=== PATIENT | male | born 1990 | race Caucasian/White ===

== ENCOUNTER 2017-09-06 19:23 | Emergency (ER) | payer OTHER ==
[2017-09-06 19:43] VITALS: BP 131/70; PULSE 99; RESP 16; TEMP 98.1; O2SAT 100
--- NOTE | 2017-09-06 20:00 | ED PDOC ---
HPI: CCC, URI, Sore Throat Time Seen by Provider: 09/06/17 19:56 Chief Complaint (Nursing): ENT Problem Chief Complaint (Provider): Throat pain History Per: Patient History/Exam Limitations: no limitations Onset/Duration Of Symptoms: Days (2) Additional Complaint(s): Patient is a 27 y/o male with a past medical history of asthma presenting to the emergency department for throat pain, body aches, and possibly a fever ongoing for two days. Notes taking cold medication without any significant relief. Denies known sick contacts, and denies any other complaints. PCP: none provided. Past Medical History Reviewed: Historical Data, Nursing Documentation, Vital Signs Vital Signs: Last Vital Signs Temp 98.1 F 09/06/17 19:41 Pulse 99 H 09/06/17 19:41 Resp 16 09/06/17 19:41 BP 131/70 09/06/17 19:41 Pulse Ox 100 09/06/17 20:07 - Medical History PMH: Asthma - Family History Family History: States: Unknown Family Hx - Home Medications Home Medications: Ambulatory Orders Medication Instructions Recorded Amoxicillin 875 mg PO BID #20 tab 09/06/17 - Allergies Allergies/Adverse Reactions: Allergies Allergy/AdvReac Type Severity Reaction Status Date / Time No Known Allergies Allergy Verified 09/06/17 19:41 Review of Systems ROS Statement: Except As Marked, All Systems Reviewed And Found Negative Constitutional: Positive for: Fever (possible), Other (body aches) ENT: Positive for: Throat Pain Physical Exam - Reviewed Nursing Documentation Reviewed: Yes Vital Signs Reviewed: Yes - Physical Exam Appears: Positive for: Non-toxic, No Acute Distress Head Exam: Positive for: ATRAUMATIC Skin: Positive for: Normal Color, Warm, Dry Eye Exam: Positive for: Normal appearance ENT: Positive for: Tonsillar Exudate, Tonsillar Swelling, Other (midline uvula) Neck: Positive for: Normal Cardiovascular/Chest: Positive for: Regular Rate, Rhythm Respiratory: Positive for: Normal Breath Sounds. Negative for: Accessory Muscle Use, Respiratory Distress Extremity: Positive for: Normal ROM. Negative for: Pedal Edema Neurologic/Psych: Positive for: Alert, Oriented (x3) - ECG O2 Sat by Pulse Oximetry: 100 (RA) Pulse Ox Interpretation: Normal Medical Decision Making Medical Decision Makin:58 Antibiotics will be given to treat for strep. 20:00 Patient is stable for discharge. Amoxicillin prescribed. Return to ED if symptoms worsen. Clinical impression: Strep Throat ~ Scribe Attestation: Documented by Nat Pedraza, acting as a scribe for ANKUR Balderrama. Provider Scribe Attestation: All medical record entries made by the Scribe were at my direction and personally dictated by me. I have reviewed the chart and agree that the record accurately reflects my personal performance of the history, physical exam, medical decision making, and the department course for this patient. I have also personally directed, reviewed, and agree with the discharge instructions and disposition. Disposition - Clinical Impression Clinical Impression: Strep pharyngitis - Patient ED Disposition Is Patient to be Admitted: No Counseled Patient/Family Regarding: Diagnosis, Rx Given - Disposition Disposition: Routine/Home Disposition Time: 20:00 Condition: STABLE Prescriptions: Amoxicillin 875 mg PO BID #20 tab Instructions: Strep Throat (ED) Forms: [employer] (Azeri), [facility] ED School/Work Excuse
== END 2017-09-06 20:24 | disposition home or self-care (01) ==
LOC: H.ER 19:23
DX: J02.0 Streptococcal pharyngitis (principal)